=== PATIENT | female | born 2005 | race American Indian/Alaskan Native ===

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

== ENCOUNTER 2025-05-01 17:23 | Emergency (ER) | payer SELFPAY ==
[2025-05-01] MEDS ORDERED: Sodium Chloride 0.9% 10 ML Syringe FLUSH PRN (18:08)
[2025-05-01] MEDS: Metoclopramide 10 MG/2 ML SDV IVPUSH ONE (18:17)
[2025-05-01] MEDS: Ketorolac 30 MG/ML SDV IVPUSH ONE (18:17)
[2025-05-01] MEDS: diphenhydrAMINE 50 MG/ML SDV IVPUSH ONE (18:17)
[2025-05-01 18:18] LABS: BASOPHILS PERCENT AUTO 0.2 % (0.0-1.0); EOSINOPHILS PERCENT AUTO 0.2 % (1.0-3.0); HEMATOCRIT 40.5 % (37.0-47.0); HEMOGLOBIN 13.9 g/dL (12.0-16.0); LYMPHOCYTES PERCENT AUTO 12.4 % (20.5-50.1); MEAN CORPUSCULAR HEMOGLOBIN 28.4 pg (27.0-34.0); MEAN CORPUSCULAR HGB CONC 34.3 g/dL (33.0-35.0); MEAN CORPUSCULAR VOLUME 82.8 fL (80-100); MONOCYTES PERCENT AUTO 12.4 % (2-8); NEUTROPHILS PERCENT AUTO 74.8 % (42.2-75.2); PLATELET COUNT,PLT 304 10^3/uL (150-450); RED BLOOD CELL COUNT 4.89 10^6/uL (4.2-5.4)
[2025-05-01] MEDS: Lactated Ringers 1,000 ML IV SCH (18:18)
[2025-05-01 18:38] LABS: A/G RATIO 0.8; ALBUMIN 3.5 g/dL (3.4-5.0); BILIRUBIN TOTAL 0.5 mg/dL (0.2-1.0); BUN/CREATININE RATIO 12.2 (No establ ref range); CALCIUM 8.9 mg/dL (8.5-10.1); CREATININE 0.74 mg/dL (0.55-1.02); EST CRCL DRUG DOSING (CG) 101.15 mL/min; MAGNESIUM 1.7 mg/dL (1.8-2.4); PROTEIN TOTAL,TP 7.7 g/dL (6.4-8.2)
[2025-05-01 18:41] LABS: ANION GAP 13.1 mEq/L (7-13); POTASSIUM,K 4.1 mmol/L (3.5-5.1)
[2025-05-01] MEDS: Take Home: Ondansetron 4 MG Tab.DIS, 5 Tab Pack PO ONE (19:33)
== END 2025-05-01 19:40 | disposition home or self-care (01) ==
LOC: DL.ED 17:23
DX: R51.9 Headache, unspecified (principal); R11.0 Nausea; Z88.0 Allergy status to penicillin; Z91.018 Allergy to other foods
CPT/HCPCS: 36415; 80053; 83735; 85025; 96361; 96374; 96375; 99284; J1200; J1885; J2765; J7120; Q0162

== ENCOUNTER 2025-05-20 08:07 | Emergency (ER) | payer SELFPAY | END 2025-05-20 10:39 | disposition home or self-care (01) | LOC: DL.ED 08:07 | DX: J18.9 Pneumonia, unspecified organism (principal); F17.200 Nicotine dependence, unspecified, uncomplicated; Z88.0 Allergy status to penicillin; Z91.018 Allergy to other foods | CPT/HCPCS: 71045; 87635; 94640; 99285; J3535; 99284; A9270-GY; U0002 ==

== ENCOUNTER 2025-06-14 00:35 | Emergency (ER) | payer SELFPAY ==
[2025-06-14] MEDS: Iopamidol 612 MG/ML 100 ML Bottle IVPUSH ONE (01:04)
[2025-06-14 01:14] LABS: BASOPHILS PERCENT AUTO 0.3 % (0.0-1.0); EOSINOPHILS PERCENT AUTO 7.9 % (1.0-3.0); LYMPHOCYTES PERCENT AUTO 19.5 % (20.5-50.1); MONOCYTES PERCENT AUTO 10.1 % (2-8); NEUTROPHILS PERCENT AUTO 62.2 % (42.2-75.2); PLATELET COUNT,PLT 461 10^3/uL (150-450); RED BLOOD CELL COUNT 5.12 10^6/uL (4.2-5.4); WHITE BLOOD CELL COUNT,WBC 9.6 10^3/uL (5.0-10.0)
[2025-06-14 01:20] LABS: APPEARANCE,URINE CLOUDY (CLEAR); GLUCOSE,URINE NEGATIVE (NEGATIVE); OCCULT BLOOD,URINE TRACE-INTACT (NEGATIVE)
[2025-06-14 01:25] LABS: AMPHETAMINES,URINE NEGATIVE (NEGATIVE); BARBITURATES,URINE NEGATIVE (NEGATIVE); MDMA (ECSTASY), URINE NEGATIVE (NEGATIVE); METHAMPHETAMINES,URINE NEGATIVE (NEGATIVE); OPIATES,URINE NEGATIVE (NEGATIVE); OXYCODONE,URINE NEGATIVE (NEGATIVE); PHENCYCLIDINE,URINE NEGATIVE (NEGATIVE); TCA,URINE NEGATIVE (NEGATIVE)
[2025-06-14 01:28] LABS: EPITHELIAL CELLS,URINE MODERATE /HPF (NOT SEEN)
[2025-06-14 01:36] LABS: A/G RATIO 0.8; ALANINE AMINOTRANSFERASE,ALT 19 U/L (14-59); ASPARTATE AMNIOTRANSFERASE,AST 19 U/L (15-37); BILIRUBIN TOTAL 0.2 mg/dL (0.2-1.0); BLOOD UREA NITROGEN,BUN 6 mg/dL (7-18); CARBON DIOXIDE,CO2 26 mmol/L (21-32); CHLORIDE,CL 104 mmol/L (98-107); CREATININE 0.78 mg/dL (0.55-1.02); EST CRCL DRUG DOSING (CG) 87.54 mL/min; ESTIMATED GFR 112 mL/min (>=60); ETHANOL BLOOD MEDICAL 4 mg/dL (0); GLUCOSE RANDOM 89 mg/dL (70-99); POTASSIUM,K 3.8 mmol/L (3.5-5.1); PROTEIN TOTAL,TP 7.7 g/dL (6.4-8.2); SODIUM,NA 139 mmol/L (136-145)
[2025-06-14 01:38] LABS: HCG QUALITATIVE,SERUM NEGATIVE (NEGATIVE)
== END 2025-06-14 02:19 | disposition home or self-care (01) ==
LOC: DL.ED 00:35
DX: S05.12XA Contusion of eyeball and orbital tissues, left eye, initial encounter (principal); L02.415 Cutaneous abscess of right lower limb; L30.9 Dermatitis, unspecified; Z88.0 Allergy status to penicillin; Z91.018 Allergy to other foods; Y04.8XXA Assault by other bodily force, initial encounter; Y93.89 Activity, other specified
CPT/HCPCS: 36415; 70450; 70486; 70491; 71045; 72125; 80053; 80305; 80307; 81001; 83690; 84703; 85025; 87086; 87088; 87186; 96374; 99285; J0696; Q9967; 99283

== ENCOUNTER 2025-06-14 02:51 | Emergency (ER) | payer SELFPAY | END 2025-06-14 03:28 | disposition home or self-care (01) | LOC: DL.ED 02:51 | DX: S00.12XA Contusion of left eyelid and periocular area, initial encounter (principal); S00.11XA Contusion of right eyelid and periocular area, initial encounter; M54.2 Cervicalgia; L30.9 Dermatitis, unspecified; Z88.0 Allergy status to penicillin; Z91.018 Allergy to other foods; Y04.8XXA Assault by other bodily force, initial encounter; Y93.89 Activity, other specified | CPT/HCPCS: 99283; A9270 ==

== ENCOUNTER 2025-06-30 23:49 | Emergency (ER) | payer SELFPAY ==
[2025-07-01] MEDS ORDERED: Ondansetron 4 MG/2 ML SDV IVPUSH ONE
[2025-07-01] MEDS: Ondansetron 4 MG Tab.DIS PO ONE (00:32)
[2025-07-01 00:41] LABS: APPEARANCE,URINE CLEAR (CLEAR); GLUCOSE,URINE NEGATIVE (NEGATIVE); OCCULT BLOOD,URINE NEGATIVE (NEGATIVE)
[2025-07-01 00:44] LABS: AMPHETAMINES,URINE POSITIVE (NEGATIVE); BARBITURATES,URINE NEGATIVE (NEGATIVE); MDMA (ECSTASY), URINE NEGATIVE (NEGATIVE); METHAMPHETAMINES,URINE POSITIVE (NEGATIVE); OPIATES,URINE NEGATIVE (NEGATIVE); OXYCODONE,URINE NEGATIVE (NEGATIVE); PHENCYCLIDINE,URINE NEGATIVE (NEGATIVE); TCA,URINE NEGATIVE (NEGATIVE)
[2025-07-01] MEDS: Take Home: Ondansetron 4 MG Tab.DIS, 5 Tab Pack PO ONE (01:15)
== END 2025-07-01 01:18 | disposition home or self-care (01) ==
LOC: DL.ED 23:49
DX: F15.10 Other stimulant abuse, uncomplicated (principal); L20.9 Atopic dermatitis, unspecified; F17.210 Nicotine dependence, cigarettes, uncomplicated; Z88.0 Allergy status to penicillin; Z91.018 Allergy to other foods
CPT/HCPCS: 80305; 81003; 81025; 99283; A9270; Q0162; 99284

== ENCOUNTER 2025-10-10 04:39 | Emergency (ER) | payer SELFPAY | END 2025-10-10 05:08 | disposition home or self-care (01) | LOC: DL.ED 04:39 | DX: T80.89XA Other complications following infusion, transfusion and therapeutic injection, initial encounter (principal); F15.10 Other stimulant abuse, uncomplicated; Z88.0 Allergy status to penicillin; Z91.018 Allergy to other foods | CPT/HCPCS: 99284 ==